=== PATIENT | male | born 1990 | race Caucasian/White ===

== ENCOUNTER 2017-01-24 11:49 | Outpatient (CLI) | payer BC | END 2017-01-24 23:59 | DX: Z53.9 Procedure and treatment not carried out, unspecified reason (principal) ==

== ENCOUNTER 2017-01-24 11:49 | Outpatient (CLI) | payer BC | END 2017-01-24 11:50 | DX: R30.0 Dysuria (principal); Z20.2 Contact with and (suspected) exposure to infections with a predominantly sexual mode of transmission ==

== ENCOUNTER 2017-07-10 15:06 | Emergency (ER) | payer BC ==
[2017-07-10 15:13] VITALS: BP 140/87
--- NOTE | 2017-07-10 15:58 | ED Physician Documentation ---
History of Present Illness - Stated complaint Stated Complaint: Chest wall pain - Chief complaint Chief Complaint: General - History obtained from History obtained from: Patient - History of Present Illness Timing: Other (Without specific injury he has a sharp pain of the far right chest wall that is worse if he extends his neck or moves his Right arm. He had a similar pain on the left a few years ago which was worked up with echocardiography and lab work which were negative. There is some shortness of breath with it but he denies cough, fever, pedal edema, recent travel, calf pain.) Review of Systems Constitutional: denies: Fever, Chills Nose: denies: Rhinorrhea / runny nose, Congestion Cardiac: denies: Pedal edema, Calf pain Respiratory: denies: Hemoptysis, Wheezing PD PAST MEDICAL HISTORY - Past Medical History Past Medical History: No Endocrine/Autoimmune: None - Past Surgical History Past Surgical History: No - Present Medications Home Medications: Ambulatory Orders Medication Instructions Recorded Confirmed No Known Home Medications [No 07/10/17 07/10/17 Known Home Medications] - Allergies Allergies/Adverse Reactions: Allergies Allergy/AdvReac Type Severity Reaction Status Date / Time No Known Drug Allergies Allergy Verified 07/10/17 15:13 - Social History Does the pt smoke?: No Smoking Status: Never smoker Does the pt drink ETOH?: Yes Does the pt have substance abuse?: Yes Substance Use and Type: Marijuana - Immunizations Immunizations are current?: Yes PD ED PE NORMAL - Vitals Vital signs reviewed: Yes - General General: Alert and oriented X 3, No acute distress - HEENT HEENT: PERRL, EOMI - Neck Neck: Supple, no meningeal sign, No bony TTP - Cardiac Cardiac: RRR, No murmur - Respiratory Respiratory: No respiratory distress, Clear bilaterally - Abdomen Abdomen: Normal bowel sounds, Soft, Non tender - Extremities Extremities: No edema, No calf tenderness / cord - Neuro Neuro: Alert and oriented X 3, Normal speech - Psych Psych: Normal mood, Normal affect Results - Vitals Vitals: Vital Signs - 24 hr 07/10/17 15:11 Temperature 36.5 C Heart Rate 85 Respiratory 12 Rate Blood Pressure 140/87 H O2 Saturation 100 Oxygen O2 Source Room air - EKG (time done) 1639 Rate: Rate (enter#) (79) Rhythm: NSR (with 1 pvc) [place]: Normal Intervals: Normal DE QRS: Normal Ischemia: Normal ST segments Computer interpretation: Agree with computer - Rads (name of study) 2v chest Radiology: EMP read contemporaneously (normal) PD MEDICAL DECISION MAKING - ED course ED course: I considered pulmonary embolism in this patient. Clinically the pretest probability of pulmonary embolism is less than 15%. I applied to the PERC rules as follows: The patient's age is under 50, heart rate less than 100, oxygen saturation greater than 94%, the patient does not have a history of DVT or PE. Patient has no recent trauma or surgery. The patient has no hemoptysis. The patient is not on exogenous estrogens. The patient does not have clinical signs suggesting DVT. As such the patient ruled out for pulmonary embolism by PERC criteria. Otherwise by history the pain is clearly chest wall/musculoskeletal. Departure - Departure Disposition: 01 Home, Self Care Clinical Impression: Chest wall pain Condition: Good Record reviewed to determine appropriate education?: Yes Instructions: ED Chest Pain Costochondritis Comments: Ibuprofen as per package instructions as needed for pain. Follow-up with your physician and return if worse. Your blood pressure was elevated today on check into the emergency department. This does not mean that you have hypertension, it is a common phenomenon to come to the emergency department and have elevated blood pressure. I recommend that she see your primary care physician within the week to have it rechecked when you are feeling better. Forms: Activity restrictions Discharge Date/Time: 07/10/17 17:02
--- NOTE | 2017-07-10 17:18 | XRAY Preliminary Report ---
Exam: XR Chest 2 View PA/LAT IMPRESSION: No acute cardiopulmonary disease seen. [facility] SITE ID: [id number]
--- NOTE | 2017-07-10 17:21 | XRAY Report ---
EXAM: CHEST RADIOGRAPHY EXAM DATE: 07/10/2017 04:24 PM. CLINICAL HISTORY: Chest pain right side. COMPARISON: None. TECHNIQUE: 2 views. FINDINGS: Lungs/Pleura: No focal opacities evident. No pleural effusion. No pneumothorax. Normal volumes. Mediastinum: Heart and mediastinal contours are unremarkable. IMPRESSION: No acute cardiopulmonary disease seen. [facility] Referring Provider Line: [phone] SITE ID: [id number]
== END 2017-07-10 17:02 | disposition home or self-care (01) ==
LOC: ED 15:06
DX: R07.89 Other chest pain (principal); R03.0 Elevated blood-pressure reading, without diagnosis of hypertension
CPT/HCPCS: 71020; 93005; 99283